=== PATIENT | male | born 2000 | race Caucasian/White ===

== ENCOUNTER 2022-11-10 10:48 | Emergency (ER) | payer SELFPAY ==
[2022-11-10 10:59] VITALS: BP 128/72; PULSE 77; RESP 15; TEMP 36.8; O2SAT 98; BMI 25.1
--- NOTE | 2022-11-10 11:02 | W.ED.PSYCHS ---
HPI - Psych General: Chief Complaint: Psychiatric Symptoms Stated Complaint: SI W/A PLAN Time Seen by Provider: 11/10/22 11:02 History of Present Illness: Mr Bobby is a 21-year-old male presenting to the emergency department for mental health evaluation. He reports multiple years of depression off and on which has been worsening over the past few months in the context of social stressors. He reports intermittent suicidal thoughts though denies current suicidal thoughts or plan. Denies suicide attempts. He is not currently on medication and has never been formally diagnosed with depression. He notes associated symptom of sleep disturbance and appetite disturbance. He called a crisis line and reports that he was tired so he fell asleep while on the line and then an ambulance showed up at his door and brought him here. No other specific changes in health, exacerbating, or alleviating factors identified. Patient does live alone. He denies alcohol abuse, drug abuse. He reports no access to firearms. Onset (ago): year(s) Duration: getting worse Relieving factors: none Exacerbating factors: none Context: significant life stressor Associated psychiatric symptoms: depression and suicidal ideation If self harm: admits thoughts of self harm Review of Systems General: Reports: 10 or more systems reviewed and unremarkable except in HPI and below PFSH ED PFSH: Medical History (Updated 11/18/22 @ 00:00 by JR Novak) No significant past medical history Surgical History (Updated 11/10/22 @ 11:09 by Ketan Rucker MD) No significant past surgical history Physical Exam Const: COMMON NORMALS: alert GENERAL APPEARANCE: cooperative and well developed HENMT: COMMON NORMALS: normocephalic and atraumatic HEAD & SCALP: normocephalic and atraumatic Eye: COMMON NORMALS: conjunctivae normal CONJUNCTIVA: Yes conjunctivae normal SCLERA: sclerae normal Neck/C-Spine: COMMON NORMALS: supple GENERAL: Yes trachea midline Resp: COMMON NORMALS: clear to auscultation bilaterally EFFORT & INSPECTION: Yes able to speak in complete sentences AUSCULTATION: clear to auscultation bilaterally Cardio: COMMON NORMALS: regular rate and regular rhythm RATE: regular rate RHYTHM: regular rhythm GI: COMMON NORMALS: Soft to palpation PALPATION: Yes Soft to palpation and No Tenderness to palpation present (GI) Extremity: GENERAL: Yes normal exam except as noted and No edema Neuro: COMMON NORMALS: moves all extremities SENSORIUM/ORIENTATION: Yes alert and No Orientation impaired Psych: COMMON NORMALS: mental status grossly normal and Normal thought process present THOUGHT PROCESS: Normal thought process present Course Vital Signs: Vital signs: Vital Signs Temperature 98.3 F 11/10/22 10:59 Pulse Rate 77 11/10/22 10:59 Respiratory Rate 15 11/10/22 10:59 Blood Pressure 128/72 11/10/22 10:59 Pulse Oximetry 98 11/10/22 10:59 Oxygen Delivery Me thod 11/10/22 10:59 MDM - Psych Medical Decision Making 21-year-old male presenting via EMS for psychiatric evaluation. He apparently was on the telephone with a crisis line and subsequently either he fell asleep or the connection was lost and so they called 911. Patient currently denies suicidal or homicidal ideation. Initially patient was somewhat agreeable to potential inpatient management however subsequently changed his mind. I reviewed documentation from crisis line. Safety plan was established and patient agrees to continue to abide by this. He is forward thinking and reports primarily being unable to be admitted as he has to return to his job. Patient denies suicidal intent. Discussed with psychiatry. I recommended admission which the patient declined. He has capacity to make healthcare decisions and I do not believe that I have any grounds to hold him against his will. He understands that he may return to the emergency department for any reason at any time. Medical Records I reviewed the patient's medical records. Lab Data I reviewed the patient's lab results. Discharge Plan Discharge Patient Disposition: Home Clinical Impression: Depression Condition: Stable Prescriptions: No Action No Known Home Medications Discharge Orders: Discharge ED (Routine); Ordered 11/10/22 Ordered By: Ketan Rucker Discharge Diet: Usual diet Discharge Activity: Increase activity as tolerated Activity Restrictions/Additional Instructions: Thank you for visiting the emergency department. You were seen and evaluated for depression. Given severity of symptoms I offered inpatient management which you are declining at this time. [facility] [phone] If you or someone you care for is experiencing a psychiatric emergency, please call the crisis hotline ([facility]) 24-hours a day, 7 days a week at [phone]. As an alternative to admission I recommend going directly to the crisis stabilization center on the [address] ([address] side) of the hospital campus. They are available from 11 AM to 9 PM daily. Please follow-up with a primary care provider as well. Establish with a primary care provider if you do not currently have one. Return to the emergency department for suicidal thoughts or anything else that you are concerned about and feel needs emergency department evaluation. Coding Level of Care Code ED Circle Saw Operator for Juliana Forde
--- NOTE | 2022-11-10 12:05 | PC.PHAR ---
pt stats takes no rx or otc meds
--- NOTE | 2022-11-10 12:08 | PC.NURSE ---
pt refusing all labs, wants to leave
== END 2022-11-10 12:50 | disposition home or self-care (01) ==
PROVIDERS: Emergency Provider Emergency Medicine
DX: F32.A Depression, unspecified (principal)
CPT/HCPCS: 99283